=== PATIENT | male | born 1935 | race Caucasian/White ===

== ENCOUNTER 2017-05-26 15:04 | Inpatient (IN) | payer OTHER ==
[2017-05-26] MEDS: SOD CHLORIDE 0.9% 1,000 ML IV ×2 (17:47→21:24)
[2017-05-26] MEDS: ONDANSETRON 4 MG INJ IV (17:47)
[2017-05-26 17:53] LABS: ADD MAN DIFF? NO
[2017-05-26 17:57] LABS: ABNORMAL IP MESSAGE 1; BASOPHILS % 0.2 % (0.0-2.0); HEMATOCRIT 39.4 % (42.0-52.0); HEMOGLOBIN 14.2 g/dl (14.0-18.0); LYMPHOCYTES # 0.8 10^3/ul (0.8-2.9); LYMPHOCYTES % 5.6 % (15.0-51.0); MEAN CORPUSCULAR HEMOGLOBIN 32.6 pg (29.0-33.0); MEAN CORPUSCULAR VOLUME 90.6 fl (82.0-101.0); MONOCYTE # 0.7 10^3/ul (0.3-0.9); MONOCYTES % 4.8 % (0.0-11.0); NEUTROPHIL # 12.3 10^3/ul (1.6-7.5); PLATELET COUNT 208 10^3/UL (140-415); POSITIVE DIFF @See below; RED BLOOD COUNT 4.35 10^6/ul (4.70-6.10); RED CELL DISTRIBUTION WIDTH 12.1 % (11.5-14.5)
[2017-05-26 17:57] LABS: WHITE BLOOD COUNT 13.8 10^3/ul (4.8-10.8)
[2017-05-26 18:06] LABS: MEAN PLATELET VOLUME 13.2 fl (7.4-10.4)
[2017-05-26 18:21] LABS: ALANINE AMINOTRANSFERASE 21 IU/L (13-69); ALBUMIN 4.7 g/dl (3.3-4.9); ALBUMIN/GLOBULIN RATIO 1.23; ALKALINE PHOSPHATASE 177 IU/L (42-121); ANION GAP 31 (8-16); ASPARTATE AMINO TRANSFERASE 29 IU/L (15-46); BILIRUBIN,INDIRECT 0.3 mg/dl (0-1.1); BILIRUBIN,TOTAL 0.3 mg/dl (0.2-1.3); BLOOD UREA NITROGEN 43 mg/dl (7-20); CALCIUM 9.3 mg/dl (8.4-10.2); CARBON DIOXIDE 18 mmol/L (21-31); CHLORIDE 84 mmol/L (97-110); LIPASE 50 U/L (23-300); POTASSIUM 4.2 mmol/L (3.5-5.1); SODIUM 129 mmol/L (135-144); TOTAL PROTEIN 8.5 g/dl (6.1-8.1)
[2017-05-26 18:30] LABS: GLUCOSE 667 mg/dl (70-220)
[2017-05-26 18:32] LABS: TROPONIN-I 0.038 ng/ml (0.00-0.12)
[2017-05-26] MEDS: INSULIN LISPRO 100 UNIT/ML VIAL SC (18:47)
[2017-05-26] MEDS: INSULIN REGULAR, HUMAN 100 UNIT/1 ML 3ML VIAL SC (20:19)
[2017-05-26] MEDS: POTASSIUM CHLORIDE (SR) 20 MEQ TAB PO (20:27)
[2017-05-26] MEDS: INSULIN HUMAN REGULAR 100 UNIT in SOD CHLORIDE 0.9% 99 ML IV ×2 (20:55→22:01)
[2017-05-26] MEDS ORDERED: BISACODYL (EC) 5 MG TAB PO (21:00)
[2017-05-26] MEDS ORDERED: DEXTROSE 50% 50 ML SYRINGE IV ×2 (21:00)
[2017-05-26] MEDS ORDERED: ALBUTEROL/IPRATROPIUM (NEB) 3 ML AMP NEB (21:00)
[2017-05-26] MEDS ORDERED: morphine 2 MG INJ IV (21:00)
[2017-05-26] MEDS ORDERED: DOCUSATE SODIUM 100 MG CAP PO (21:00)
[2017-05-26] MEDS ORDERED: ACETAMINOPHEN 650MG/20.3ML CUP PO (21:00)
[2017-05-26] MEDS: ACCU-CHEK XX ×3 (21:52→23:12)
[2017-05-26 22:38] LABS: HEMOGLOBIN A1C 12.1 % (0-5.9)
[2017-05-26 22:45] LABS: ANION GAP 19 (8-16); BLOOD UREA NITROGEN 40 mg/dl (7-20); CALCIUM 8.7 mg/dl (8.4-10.2); CARBON DIOXIDE 20 mmol/L (21-31); CHLORIDE 98 mmol/L (97-110); CREATININE 1.55 mg/dl (0.61-1.24); GLUCOSE 301 mg/dl (70-220); POTASSIUM 3.4 mmol/L (3.5-5.1); SODIUM 134 mmol/L (135-144)
[2017-05-26 22:48] LABS: PHOSPHORUS 3.5 mg/dl (2.5-4.9)
[2017-05-27] MEDS: INSULIN HUMAN REGULAR 100 UNIT in SOD CHLORIDE 0.9% 99 ML IV (00:03)
[2017-05-27] MEDS: ACCU-CHEK XX ×13 (00:03→12:16)
[2017-05-27] MEDS: DEXTROSE 5%-0.45% NACL 1,000 ML IV ×4 (00:30→15:30)
[2017-05-27 01:37] LABS: ANION GAP 20 (8-16); BLOOD UREA NITROGEN 36 mg/dl (7-20); CALCIUM 8.8 mg/dl (8.4-10.2); CARBON DIOXIDE 22 mmol/L (21-31); CHLORIDE 103 mmol/L (97-110); CREATININE 1.42 mg/dl (0.61-1.24); GLUCOSE 142 mg/dl (70-220); POTASSIUM 3.3 mmol/L (3.5-5.1); SODIUM 142 mmol/L (135-144)
[2017-05-27] MEDS: SOD CHLORIDE 0.9% 1,000 ML IV ×2 (02:00→05:16)
[2017-05-27 03:52] LABS: CREATINE KINASE 582 IU/L (23-200)
[2017-05-27 03:53] LABS: PHOSPHORUS 2.2 mg/dl (2.5-4.9)
[2017-05-27 03:54] LABS: ANION GAP 14 (8-16); BLOOD UREA NITROGEN 33 mg/dl (7-20); CALCIUM 8.7 mg/dl (8.4-10.2); CARBON DIOXIDE 25 mmol/L (21-31); CHLORIDE 105 mmol/L (97-110); CREATININE 1.38 mg/dl (0.61-1.24); GLUCOSE 79 mg/dl (70-220); POTASSIUM 3.3 mmol/L (3.5-5.1); SODIUM 141 mmol/L (135-144)
[2017-05-27 04:02] LABS: CK INDEX 0.7; CK-MB 4.18 ng/ml (0.0-2.4); TROPONIN-I 0.058 ng/ml (0.00-0.12)
[2017-05-27] MEDS: hydrALAzine 20 MG INJ IV ×2 (04:16→09:39)
[2017-05-27] MEDS: POTASSIUM CHLORIDE 100 ML IVPB ×3 (04:34→08:30)
[2017-05-27] MEDS: PANTOPRAZOLE 40 MG INJ IV (05:16)
[2017-05-27] MEDS ORDERED: GLUCAGON 1 MG INJ IM (09:00)
[2017-05-27] MEDS ORDERED: GLUCOSE GEL 15 GRAM TUBE PO ×2 (09:00)
[2017-05-27] MEDS ORDERED: GLUCOSE GEL 15 GRAM TUBE BUCCAL (09:00)
[2017-05-27] MEDS ORDERED: DEXTROSE 50% 50 ML SYRINGE IV ×2 (09:00)
[2017-05-27] MEDS: ASPIRIN 81 MG TAB PO (09:37)
[2017-05-27] MEDS: ATORVASTATIN 10 MG TAB PO (09:37)
[2017-05-27] MEDS: AMLODIPINE 5 MG TAB PO (09:37)
[2017-05-27] MEDS: POTASSIUM CHLORIDE 20 MEQ in LACTATED RINGER'S 1,000 ML IV ×3 (09:44→21:08)
[2017-05-27] MEDS: INSULIN GLARGINE [LANtus] 3 ML PEN SC (09:51)
[2017-05-27 10:51] LABS: ANION GAP 17 (8-16); BLOOD UREA NITROGEN 25 mg/dl (7-20); CALCIUM 8.7 mg/dl (8.4-10.2); CARBON DIOXIDE 21 mmol/L (21-31); CHLORIDE 104 mmol/L (97-110); CREATINE KINASE 509 IU/L (23-200); CREATININE 1.21 mg/dl (0.61-1.24); GLUCOSE 113 mg/dl (70-220); POTASSIUM 3.8 mmol/L (3.5-5.1); SODIUM 138 mmol/L (135-144)
[2017-05-27 10:52] LABS: CHOL/HDL RATIO 4.4 RATIO; HDL CHOLESTEROL 49 mg/dl (31-75); LDL CHOLESTEROL,CALCULATED 149 mg/dl; TRIGLYCERIDES 110 mg/dl (0-149)
[2017-05-27 10:52] LABS: CHOLESTEROL 220 mg/dl (100-200)
[2017-05-27 11:02] LABS: CK INDEX 0.9; TROPONIN-I 0.043 ng/ml (0.00-0.12)
[2017-05-27 11:08] LABS: CK-MB 4.45 ng/ml (0.0-2.4)
[2017-05-27 11:24] LABS: THYROID STIMULATING HORMONE 0.593 MIU/L (0.465-4.680)
[2017-05-27] MEDS: INSULIN ASPART [NOVOLOG] 3 ML PEN SC ×5 (11:30→20:57)
[2017-05-27 11:41] LABS: HEPATITIS C VIRAL ANTIBODY NEGATIVE (NEGATIVE)
[2017-05-27 13:50] LABS: ANION GAP 17 (8-16); BLOOD UREA NITROGEN 22 mg/dl (7-20); CALCIUM 8.8 mg/dl (8.4-10.2); CARBON DIOXIDE 20 mmol/L (21-31); CHLORIDE 106 mmol/L (97-110); CREATININE 1.13 mg/dl (0.61-1.24); GLUCOSE 120 mg/dl (70-220); SODIUM 139 mmol/L (135-144)
[2017-05-27 16:38] LABS: ADD UMIC YES; UR ASCORBIC ACID NEGATIVE (NEGATIVE); UR BILIRUBIN (Dip) NEGATIVE (NEGATIVE); UR BLOOD (Dip) 1+ mg/dL (NEGATIVE); UR CLARITY CLEAR (CLEAR); UR COLOR STRAW (YELLOW); UR GLUCOSE (Dip) 3+ mg/dL (NEGATIVE); UR KETONES (Dip) NEGATIVE (NEGATIVE); UR LEUKOCYTE ESTERASE (Dip) NEGATIVE Leu/ul (NEGATIVE); UR NITRITE (Dip) NEGATIVE (NEGATIVE); UR RBC 2 /HPF (0-5); UR SPECIFIC GRAVITY (Dip) 1.006 (1.003-1.030); UR TOTAL PROTEIN (Dip) NEGATIVE (NEGATIVE); UR UROBILINOGEN (Dip) NEGATIVE (NEGATIVE); UR WBC 0 /HPF (0-5)
[2017-05-27 17:49] LABS: ANION GAP 15 (8-16); BLOOD UREA NITROGEN 21 mg/dl (7-20); CALCIUM 8.8 mg/dl (8.4-10.2); CARBON DIOXIDE 21 mmol/L (21-31); CHLORIDE 104 mmol/L (97-110); CREATININE 1.21 mg/dl (0.61-1.24); GLUCOSE 154 mg/dl (70-220); SODIUM 136 mmol/L (135-144)
[2017-05-27] MEDS: METOPROLOL 25 MG TAB PO ×2 (18:07→21:01)
[2017-05-27] MEDS ORDERED: ATORVASTATIN 10 MG TAB PO (21:00)
[2017-05-27] MEDS: MEGESTROL (40 MG/ML) 10ML CUP PO (21:01)
[2017-05-28] MEDS ORDERED: ACCU-CHEK XX (02:00)
[2017-05-28] MEDS: hydrALAzine 20 MG INJ IV (04:21)
[2017-05-28] MEDS: PANTOPRAZOLE 40 MG INJ IV (05:12)
[2017-05-28 06:26] LABS: ADD MAN DIFF? NO
[2017-05-28 06:30] LABS: BASOPHILS % 0.4 % (0.0-2.0); EOSINOPHILS % 0.2 % (0.0-7.0); HEMATOCRIT 37.6 % (42.0-52.0); HEMOGLOBIN 13.5 g/dl (14.0-18.0); LYMPHOCYTES # 1.6 10^3/ul (0.8-2.9); LYMPHOCYTES % 16.7 % (15.0-51.0); MEAN CORPUSCULAR HEMOGLOBIN 32.6 pg (29.0-33.0); MEAN CORPUSCULAR HGB CONC 35.9 g/dl (32.0-37.0); MEAN CORPUSCULAR VOLUME 90.8 fl (82.0-101.0); MEAN PLATELET VOLUME 12.7 fl (7.4-10.4); MONOCYTE # 0.7 10^3/ul (0.3-0.9); MONOCYTES % 7.5 % (0.0-11.0); NEUTROPHIL # 6.9 10^3/ul (1.6-7.5); NEUTROPHILS % 74.6 % (39.0-77.0); PLATELET COUNT 199 10^3/UL (140-415); RED BLOOD COUNT 4.14 10^6/ul (4.70-6.10); RED CELL DISTRIBUTION WIDTH 12.2 % (11.5-14.5)
[2017-05-28 06:30] LABS: WHITE BLOOD COUNT 9.3 10^3/ul (4.8-10.8)
[2017-05-28 07:14] LABS: ALANINE AMINOTRANSFERASE 28 IU/L (13-69); ALBUMIN 3.7 g/dl (3.3-4.9); ALBUMIN/GLOBULIN RATIO 1.12; ALKALINE PHOSPHATASE 112 IU/L (42-121); ANION GAP 18 (8-16); ASPARTATE AMINO TRANSFERASE 31 IU/L (15-46); BILIRUBIN,INDIRECT 0.3 mg/dl (0-1.1); BILIRUBIN,TOTAL 0.3 mg/dl (0.2-1.3); BLOOD UREA NITROGEN 20 mg/dl (7-20); CALCIUM 9.1 mg/dl (8.4-10.2); CARBON DIOXIDE 22 mmol/L (21-31); CHLORIDE 103 mmol/L (97-110); CREATININE 1.21 mg/dl (0.61-1.24); GLUCOSE 180 mg/dl (70-220); POTASSIUM 4.3 mmol/L (3.5-5.1); SODIUM 139 mmol/L (135-144)
[2017-05-28] MEDS: ATORVASTATIN 10 MG TAB PO (07:55)
[2017-05-28] MEDS: MEGESTROL (40 MG/ML) 10ML CUP PO ×2 (07:55→20:33)
[2017-05-28] MEDS: METOPROLOL 25 MG TAB PO ×2 (07:55→20:32)
[2017-05-28] MEDS: AMLODIPINE 5 MG TAB PO (07:55)
[2017-05-28] MEDS: ASPIRIN 81 MG TAB PO (07:55)
[2017-05-28] MEDS: INSULIN ASPART [NOVOLOG] 3 ML PEN SC ×7 (07:59→20:32)
[2017-05-28] MEDS: INSULIN GLARGINE [LANtus] 3 ML PEN SC (08:02)
[2017-05-28] MEDS: ONDANSETRON 4 MG INJ IV (13:44)
[2017-05-28] MEDS: metFORMIN 500 MG TAB PO (17:12)
[2017-05-29] MEDS: PANTOPRAZOLE 40 MG INJ IV (06:02)
[2017-05-29 07:55] LABS: ABNORMAL IP MESSAGE 1; HEMATOCRIT 34.7 % (42.0-52.0); HEMOGLOBIN 12.7 g/dl (14.0-18.0); MEAN CORPUSCULAR HEMOGLOBIN 33.3 pg (29.0-33.0); MEAN CORPUSCULAR HGB CONC 36.6 g/dl (32.0-37.0); MEAN CORPUSCULAR VOLUME 91.1 fl (82.0-101.0); MEAN PLATELET VOLUME 12.4 fl (7.4-10.4); PLATELET COUNT 185 10^3/UL (140-415); POSITIVE DIFF @See below; RED BLOOD COUNT 3.81 10^6/ul (4.70-6.10); RED CELL DISTRIBUTION WIDTH 12.4 % (11.5-14.5)
[2017-05-29 07:55] LABS: WHITE BLOOD COUNT 10.5 10^3/ul (4.8-10.8)
[2017-05-29] MEDS: INSULIN ASPART [NOVOLOG] 3 ML PEN SC ×6 (07:55→20:48)
[2017-05-29 07:59] LABS: ADD MAN DIFF? YES
[2017-05-29 08:15] LABS: ALANINE AMINOTRANSFERASE 21 IU/L (13-69); ALBUMIN 3.5 g/dl (3.3-4.9); ALBUMIN/GLOBULIN RATIO 1.25; ALKALINE PHOSPHATASE 87 IU/L (42-121); ANION GAP 21 (8-16); ASPARTATE AMINO TRANSFERASE 21 IU/L (15-46); BILIRUBIN,INDIRECT 0.5 mg/dl (0-1.1); BILIRUBIN,TOTAL 0.5 mg/dl (0.2-1.3); BLOOD UREA NITROGEN 22 mg/dl (7-20); CARBON DIOXIDE 19 mmol/L (21-31); CHLORIDE 104 mmol/L (97-110); CREATINE KINASE 52 IU/L (23-200); CREATININE 1.31 mg/dl (0.61-1.24); GLUCOSE 119 mg/dl (70-220); MAGNESIUM 1.9 mg/dl (1.7-2.5); SODIUM 140 mmol/L (135-144); TOTAL PROTEIN 6.3 g/dl (6.1-8.1)
[2017-05-29 08:22] LABS: B-TYPE NATRIURETIC PEPTIDE 2890 PG/ML (0-450)
[2017-05-29] MEDS: metFORMIN 500 MG TAB PO ×2 (09:39→17:55)
[2017-05-29] MEDS: MEGESTROL (40 MG/ML) 10ML CUP PO ×2 (09:39→20:48)
[2017-05-29] MEDS: ASPIRIN 81 MG TAB PO (09:39)
[2017-05-29] MEDS: METOPROLOL (XL) 50 MG TAB PO (09:39)
[2017-05-29] MEDS: INSULIN GLARGINE [LANtus] 3 ML PEN SC (09:48)
[2017-05-29 10:39] LABS: BAND NEUTROPHILS #M 0.3 10^3/ul (0.0-0.6); BAND NEUTROPHILS % (M) 3 % (0-4); BURR CELLS 2+ (0-0); LYMPHOCYTES #M 2.2 10^3/ul (0.8-2.9); LYMPHOCYTES % (M) 21 % (15-51); METAMYELOCYTES #M 0.1 10^3/ul (0.0-0.0); METAMYELOCYTES %M 1 % (0-0); MONOCYTE #M 0.3 10^3/ul (0.3-0.9); MONOCYTES % (M) 3 % (0-11); PLATELET ESTIMATE NORMAL; POIKILOCYTOSIS 1+ (0-0); POLYCHROMASIA 2+ (0-0); SEG NEUT #M 7.6 10^3/ul (1.6-7.5); SEGMENTED NEUTROPHILS (M) % 72 % (39-77); SMUDGE%M 2 % (0-0)
[2017-05-29 15:22] LABS: C-PEPTIDE 0.24 ng/mL (0.80-3.85); CREATININE, RANDOM URINE 30 mg/dL (20-370); MICROALBUMIN 7.3 mg/dL; MICROALBUMIN/CREATININE RATIO 243 (<30)
[2017-05-29] MEDS: LINAGLIPTIN 5 MG TABLET PO (15:30)
[2017-05-29] MEDS: REPAGLINIDE 1 MG TAB PO (17:55)
[2017-05-29] MEDS: ATORVASTATIN 20 MG TAB PO (20:48)
[2017-05-30] MEDS: PANTOPRAZOLE 40 MG INJ IV (05:29)
[2017-05-30] MEDS: REPAGLINIDE 1 MG TAB PO ×2 (07:55→09:29)
[2017-05-30] MEDS: metFORMIN 500 MG TAB PO ×3 (07:55→17:45)
[2017-05-30] MEDS: INSULIN ASPART [NOVOLOG] 3 ML PEN SC ×4 (07:55→20:19)
[2017-05-30] MEDS: LINAGLIPTIN 5 MG TABLET PO ×2 (09:00→09:32)
[2017-05-30] MEDS: ASPIRIN 81 MG TAB PO (09:27)
[2017-05-30] MEDS: METOPROLOL (XL) 50 MG TAB PO ×2 (09:28→09:33)
[2017-05-30] MEDS: MEGESTROL (40 MG/ML) 10ML CUP PO ×2 (09:29→20:12)
[2017-05-30] MEDS: SOD CHLORIDE 0.45% 1,000 ML IV (12:43)
[2017-05-30 13:37] LABS: ADD MAN DIFF? NO
[2017-05-30 13:52] LABS: BASOPHILS % 0.4 % (0.0-2.0); EOSINOPHILS # 0.1 10^3/ul (0.0-0.5); EOSINOPHILS % 0.9 % (0.0-7.0); HEMATOCRIT 35.2 % (42.0-52.0); HEMOGLOBIN 12.6 g/dl (14.0-18.0); LYMPHOCYTES # 1.9 10^3/ul (0.8-2.9); LYMPHOCYTES % 26.9 % (15.0-51.0); MEAN CORPUSCULAR HEMOGLOBIN 33.1 pg (29.0-33.0); MEAN CORPUSCULAR HGB CONC 35.8 g/dl (32.0-37.0); MEAN CORPUSCULAR VOLUME 92.4 fl (82.0-101.0); MEAN PLATELET VOLUME 12.4 fl (7.4-10.4); MONOCYTE # 0.6 10^3/ul (0.3-0.9); MONOCYTES % 8.9 % (0.0-11.0); NEUTROPHIL # 4.4 10^3/ul (1.6-7.5); NEUTROPHILS % 62.6 % (39.0-77.0); PLATELET COUNT 199 10^3/UL (140-415); RED BLOOD COUNT 3.81 10^6/ul (4.70-6.10); RED CELL DISTRIBUTION WIDTH 12.3 % (11.5-14.5)
[2017-05-30 13:58] LABS: ANION GAP 19 (8-16); BLOOD UREA NITROGEN 31 mg/dl (7-20); CALCIUM 8.6 mg/dl (8.4-10.2); CARBON DIOXIDE 22 mmol/L (21-31); CHLORIDE 102 mmol/L (97-110); CREATININE 1.68 mg/dl (0.61-1.24); GLUCOSE 223 mg/dl (70-220); MAGNESIUM 1.9 mg/dl (1.7-2.5); PHOSPHORUS 2.7 mg/dl (2.5-4.9); POTASSIUM 3.6 mmol/L (3.5-5.1); SODIUM 139 mmol/L (135-144)
[2017-05-30] MEDS: CEPHALEXIN 500 MG CAP PO ×2 (14:24→22:01)
[2017-05-30] MEDS: ATORVASTATIN 20 MG TAB PO (20:12)
[2017-05-31] MEDS: INSULIN ASPART [NOVOLOG] 3 ML PEN SC ×5 (04:17→20:35)
[2017-05-31] MEDS: CEPHALEXIN 500 MG CAP PO ×2 (05:21→14:11)
[2017-05-31] MEDS: PANTOPRAZOLE 40 MG INJ IV (05:21)
[2017-05-31] MEDS: SOD CHLORIDE 0.45% 1,000 ML IV (07:34)
[2017-05-31] MEDS: metFORMIN 500 MG TAB PO (09:10)
[2017-05-31] MEDS: METOPROLOL (XL) 50 MG TAB PO (09:10)
[2017-05-31] MEDS: LINAGLIPTIN 5 MG TABLET PO (09:10)
[2017-05-31] MEDS: MEGESTROL (40 MG/ML) 10ML CUP PO ×2 (09:10→20:19)
[2017-05-31] MEDS: ASPIRIN 81 MG TAB PO (09:10)
[2017-05-31] MEDS: PANTOPRAZOLE (EC) 40 MG TAB PO (14:11)
[2017-05-31 14:34] LABS: ADD MAN DIFF? NO
[2017-05-31 14:36] LABS: BASOPHIL # 0.1 10^3/ul (0.0-0.1); BASOPHILS % 0.7 % (0.0-2.0); EOSINOPHILS # 0.1 10^3/ul (0.0-0.5); EOSINOPHILS % 1.4 % (0.0-7.0); HEMATOCRIT 30.6 % (42.0-52.0); HEMOGLOBIN 11.1 g/dl (14.0-18.0); LYMPHOCYTES # 1.8 10^3/ul (0.8-2.9); LYMPHOCYTES % 18.8 % (15.0-51.0); MEAN CORPUSCULAR HEMOGLOBIN 33.2 pg (29.0-33.0); MEAN CORPUSCULAR HGB CONC 36.3 g/dl (32.0-37.0); MEAN CORPUSCULAR VOLUME 91.6 fl (82.0-101.0); MEAN PLATELET VOLUME 12.6 fl (7.4-10.4); MONOCYTES % 10.2 % (0.0-11.0); NEUTROPHIL # 6.6 10^3/ul (1.6-7.5); NEUTROPHILS % 68.5 % (39.0-77.0); PLATELET COUNT 186 10^3/UL (140-415); RED BLOOD COUNT 3.34 10^6/ul (4.70-6.10); RED CELL DISTRIBUTION WIDTH 12.4 % (11.5-14.5)
[2017-05-31 14:36] LABS: WHITE BLOOD COUNT 9.6 10^3/ul (4.8-10.8)
[2017-05-31 14:54] LABS: ANION GAP 15 (8-16); BLOOD UREA NITROGEN 31 mg/dl (7-20); CALCIUM 8.6 mg/dl (8.4-10.2); CARBON DIOXIDE 22 mmol/L (21-31); CHLORIDE 106 mmol/L (97-110); CREATININE 1.63 mg/dl (0.61-1.24); GLUCOSE 192 mg/dl (70-220); POTASSIUM 3.5 mmol/L (3.5-5.1); SODIUM 139 mmol/L (135-144)
[2017-05-31] MEDS: SOD CHLORIDE 0.9% 1,000 ML IV (17:14)
[2017-05-31] MEDS: REPAGLINIDE 1 MG TAB PO (17:38)
[2017-05-31] MEDS ORDERED: INSULIN GLARGINE [LANtus] 3 ML PEN SC (20:00)
[2017-05-31] MEDS: ATORVASTATIN 20 MG TAB PO (20:19)
[2017-05-31] MEDS: INSULIN GLARGINE [LANtus] 3 ML PEN SC (20:26)
[2017-06-01] MEDS: PANTOPRAZOLE (EC) 40 MG TAB PO (06:31)
[2017-06-01 08:03] LABS: ADD MAN DIFF? NO
[2017-06-01 08:11] LABS: BASOPHIL # 0.1 10^3/ul (0.0-0.1); BASOPHILS % 0.5 % (0.0-2.0); EOSINOPHILS # 0.1 10^3/ul (0.0-0.5); EOSINOPHILS % 1.2 % (0.0-7.0); LYMPHOCYTES # 2.2 10^3/ul (0.8-2.9); LYMPHOCYTES % 24.1 % (15.0-51.0); MEAN CORPUSCULAR HEMOGLOBIN 32.8 pg (29.0-33.0); MEAN CORPUSCULAR HGB CONC 35.5 g/dl (32.0-37.0); MEAN CORPUSCULAR VOLUME 92.5 fl (82.0-101.0); MEAN PLATELET VOLUME 12.7 fl (7.4-10.4); MONOCYTE # 0.9 10^3/ul (0.3-0.9); MONOCYTES % 10.2 % (0.0-11.0); NEUTROPHIL # 5.8 10^3/ul (1.6-7.5); NEUTROPHILS % 63.5 % (39.0-77.0); PLATELET COUNT 195 10^3/UL (140-415); RED BLOOD COUNT 3.35 10^6/ul (4.70-6.10); RED CELL DISTRIBUTION WIDTH 12.3 % (11.5-14.5)
[2017-06-01 08:11] LABS: WHITE BLOOD COUNT 9.1 10^3/ul (4.8-10.8)
[2017-06-01] MEDS: REPAGLINIDE 1 MG TAB PO (08:18)
[2017-06-01] MEDS: MEGESTROL (40 MG/ML) 10ML CUP PO ×2 (08:18→21:19)
[2017-06-01] MEDS: METOPROLOL (XL) 50 MG TAB PO (08:19)
[2017-06-01] MEDS: LINAGLIPTIN 5 MG TABLET PO (08:19)
[2017-06-01] MEDS: ASPIRIN 81 MG TAB PO (08:19)
[2017-06-01 08:31] LABS: ANION GAP 17 (8-16); BLOOD UREA NITROGEN 31 mg/dl (7-20); CALCIUM 8.8 mg/dl (8.4-10.2); CARBON DIOXIDE 24 mmol/L (21-31); CHLORIDE 106 mmol/L (97-110); CREATININE 1.57 mg/dl (0.61-1.24); GLUCOSE 234 mg/dl (70-220); MAGNESIUM 1.9 mg/dl (1.7-2.5); POTASSIUM 3.9 mmol/L (3.5-5.1); SODIUM 143 mmol/L (135-144)
[2017-06-01] MEDS: INSULIN ASPART [NOVOLOG] 3 ML PEN SC ×4 (08:37→21:25)
[2017-06-01] MEDS: REPAGLINIDE 2 MG TAB PO ×2 (12:30→18:18)
[2017-06-01] MEDS: SOD CHLORIDE 0.9% 1,000 ML IV (12:51)
[2017-06-01] MEDS: ATORVASTATIN 20 MG TAB PO (21:17)
[2017-06-01] MEDS: INSULIN GLARGINE [LANtus] 3 ML PEN SC (21:24)
[2017-06-02] MEDS: SOD CHLORIDE 0.9% 1,000 ML IV (05:00)
[2017-06-02 05:36] LABS: WHITE BLOOD COUNT 10.1 10^3/ul (4.8-10.8)
[2017-06-02 05:36] LABS: ADD MAN DIFF? NO; BASOPHILS % 0.2 % (0.0-2.0); EOSINOPHILS % 0.2 % (0.0-7.0); HEMATOCRIT 29.2 % (42.0-52.0); HEMOGLOBIN 10.2 g/dl (14.0-18.0); LYMPHOCYTES # 2.4 10^3/ul (0.8-2.9); LYMPHOCYTES % 24.1 % (15.0-51.0); MEAN CORPUSCULAR HEMOGLOBIN 31.9 pg (29.0-33.0); MEAN CORPUSCULAR HGB CONC 34.9 g/dl (32.0-37.0); MEAN CORPUSCULAR VOLUME 91.3 fl (82.0-101.0); MEAN PLATELET VOLUME 12.3 fl (7.4-10.4); NEUTROPHIL # 6.5 10^3/ul (1.6-7.5); NEUTROPHILS % 64.7 % (39.0-77.0); PLATELET COUNT 207 10^3/UL (140-415); RED CELL DISTRIBUTION WIDTH 12.3 % (11.5-14.5)
[2017-06-02] MEDS: PANTOPRAZOLE (EC) 40 MG TAB PO (05:36)
[2017-06-02 06:25] LABS: ANION GAP 15 (8-16); BLOOD UREA NITROGEN 30 mg/dl (7-20); CALCIUM 8.9 mg/dl (8.4-10.2); CARBON DIOXIDE 23 mmol/L (21-31); CHLORIDE 107 mmol/L (97-110); CREATININE 1.42 mg/dl (0.61-1.24); GLUCOSE 306 mg/dl (70-220); MAGNESIUM 1.7 mg/dl (1.7-2.5); PHOSPHORUS 3.2 mg/dl (2.5-4.9); POTASSIUM 3.8 mmol/L (3.5-5.1); SODIUM 141 mmol/L (135-144)
[2017-06-02] MEDS: LINAGLIPTIN 5 MG TABLET PO (08:39)
[2017-06-02] MEDS: REPAGLINIDE 2 MG TAB PO ×2 (08:39→12:54)
[2017-06-02] MEDS: ASPIRIN 81 MG TAB PO (08:39)
[2017-06-02] MEDS: MEGESTROL (40 MG/ML) 10ML CUP PO (08:40)
[2017-06-02] MEDS: METOPROLOL (XL) 50 MG TAB PO (08:40)
[2017-06-02] MEDS: INSULIN ASPART [NOVOLOG] 3 ML PEN SC ×2 (08:48→12:57)
== END 2017-06-02 14:00 | disposition home health service (06) | DRG 638 ==
LOC: ICU 20:14 → E/R 15:04 → TEL 05-27 19:55 → MS1 06-01 16:00
DX: E11.10 Type 2 diabetes mellitus with ketoacidosis without coma (principal); N17.9 Acute kidney failure, unspecified; E44.0 Moderate protein-calorie malnutrition; Z68.1 Body mass index [BMI] 19.9 or less, adult; E87.2 Acidosis; E11.65 Type 2 diabetes mellitus with hyperglycemia; I12.9 Hypertensive chronic kidney disease with stage 1 through stage 4 chronic kidney disease, or unspecified chronic kidney disease; E11.22 Type 2 diabetes mellitus with diabetic chronic kidney disease; N18.9 Chronic kidney disease, unspecified; E78.5 Hyperlipidemia, unspecified; F17.210 Nicotine dependence, cigarettes, uncomplicated; E87.6 Hypokalemia; R07.89 Other chest pain; Z79.4 Long term (current) use of insulin; Z79.82 Long term (current) use of aspirin; Z91.19 Patient's noncompliance with other medical treatment and regimen; Z79.84 Long term (current) use of oral hypoglycemic drugs
CPT/HCPCS: 36415; 71045; 71250; 74176; 80048; 80053; 80061; 81001; 82043; 82550; 82553; 82962; 83036; 83690; 83735; 83880; 84100; 84443; 84484; 84681; 85025; 86803; 87040; 87081; 87086; 93005; 93306; 96372; 96374; 96375; 97110; 97116; 97162; 97165; 97530; 99291-25